=== PATIENT | female | born 1940 | race Caucasian/White ===

== ENCOUNTER 2018-11-23 13:43 | Inpatient (IN) ==
[2018-11-23 14:23] LABS: BASO# 0.01 X1000 (0.0-0.2); BASO% 0.2 % (0.0-0.8); EOS# 0.28 X1000 (0.0-0.7); HEMATOCRIT 36.3 % (37.0-47.0); HEMOGLOBIN 11.7 g/dL (12.0-16.0); IMM GRAN# 0.02 X1000 (0.0-0.04); IMM GRAN% 0.4 % (0.0-0.5); LYMPH# 1.32 X1000 (1.2-3.4); LYMPH% 23.4 % (20.5-51.1); MCH 27.6 PG (27-31); MCHC 32.2 g/dL (33-37); MCV 85.6 FL (81-99); MONO# 0.41 X1000 (0.11-0.59); MONO% 7.3 % (1.7-9.3); MPV 11.4 FL (7.4-10.4); NEUT% 63.7 % (42.2-75.2); PLT 192 X1000 (130-400); RBC 4.24 XMIL (4.2-5.4); WBC 5.64 X1000 (4.8-10.8)
[2018-11-23 14:58] LABS: ALB/GLOB RATIO 1.2; ALBUMIN 3.7 g/dL (3.5-5.0); CALCIUM 8.5 mg/dL (8.8-10.2); CREATININE 1.6 mg/dL (0.5-0.9); POTASSIUM 3.4 mmol/L (3.5-5.1); TOTAL BILIRUBIN 0.37 mg/dL (0.20-1.00); TOTAL PROTEIN 6.7 g/dL (6.3-8.3)
--- NOTE | 2018-11-23 16:13 | PROVIDER DOCUMENTATION ---
HPI-Abdominal Pain/GI Problem - General Chief Complaint: N/V/D Stated Complaint: WEAK/VOMITING Time Seen by Provider: 11/23/18 15:50 Source: patient Allergies/Adverse Reactions: Patient Allergies Allergy/AdvReac Type Severity Reaction Status Date / Time codeine Allergy HIVES Verified 11/18/18 14:21 hydrocodone Allergy ITCHING Verified 11/18/18 14:21 levofloxacin [From Levaquin] Allergy VOMITING Verified 11/18/18 14:21 Penicillins Allergy HIVES Verified 11/18/18 14:21 Home Medications: Home Medication List Medication Instructions Recorded Confirmed Last Taken Type ATORVAstatin [Lipitor] 40 mg PO HS 12/09/16 11/23/18 08/28/17 History Carvedilol 6.25 mg PO BID 12/09/16 11/23/18 08/28/17 History Isosorbide Mononitrate [Isosorbide 30 mg PO DAILY 12/09/16 11/23/18 08/28/17 History Mononitrate ER] Aspirin 81 mg PO DAILY 05/05/17 11/23/18 08/28/17 History Blood-Glucose Meter [Relion 1 each MC BID 08/28/17 11/23/18 08/28/17 History All-in-One] Furosemide [Lasix] 40 mg PO PRN PRN 08/28/17 11/23/18 Unknown History Ticagrelor [Brilinta] 90 mg PO BID 08/28/17 11/23/18 Unknown History Ascorbic Acid [Vitamin C] 250 mg PO DAILY 11/23/18 11/23/18 Unknown History Azithromycin 1 tab PO DAILY 11/23/18 11/23/18 Unknown History Cholecalciferol (Vit D3) [Vitamin 1 tab PO DAILY 11/23/18 11/23/18 Unknown History D3] Citalopram Hydrobromide [Celexa] 10 mg PO DAILY 11/23/18 11/23/18 Unknown History Cyanocobalamin (Vitamin B-12) 1,000 mcg IM DIRECTED 11/23/18 11/23/18 Unknown History [Cyanocobalamin Injection] Donepezil [Aricept] 10 mg PO QHS 11/23/18 11/23/18 Unknown History Guaifenesin [Mucinex] 600 mg PO Q12HR PRN 11/23/18 11/23/18 Unknown History Insulin Lispro [Humalog] 5 unit SQ DAILY PRN 11/23/18 11/23/18 Unknown History Insulin NPH Human Isophane 10 units SQ QHS 11/23/18 11/23/18 Unknown History [Novolin N] Insulin NPH Human Isophane 12 units SQ QAM 11/23/18 11/23/18 Unknown History [Novolin N] Levothyroxine [Synthroid] 75 microgm PO DAILY 11/23/18 11/23/18 Unknown History Potassium Chloride 10 meq PO DAILY PRN 11/23/18 11/23/18 Unknown History Temazepam 1 cap PO QHS 11/23/18 11/23/18 Unknown History - History of Present Illness-ABD Nature of Presenting Problems: 78y/o female with h/o DM, HLD, Hypot4 discharged from [facility] yesterday and for home rehab due to possible CVA with left sided hemiparesis. She was started on zpak for cough but developed nausea, vomiting and diarrhea yesterday. had numerous episodes of emesis and loose watery stools and reports feeling weak and unable to do anything for her self at home. Associated Symptoms: reports: diarrhea Dark Stools Present?: reports: none noticed # of Diarrhea Episodes: 6 # of Vomiting Episodes: 5 Emesis Description: reports: clear Review of Systems - Adult - REVIEW OF SYSTEMS - ADULT Constitutional: reports: no symptoms reported Eyes: reports: no symptoms reported Ears, Nose, Mouth & Throat: reports: no symptoms reported Cardiovascular: reports: no symptoms reported Respiratory: reports: cough Gastrointestinal: reports: see HPI Genitourinary: reports: no symptoms reported Musculoskeletal: reports: no symptoms reported Integumentary: reports: no symptoms reported Neurological: reports: see HPI Psychiatric: reports: no symptoms reported Endocrine: reports: no symptoms reported Allergic/Immunologic: reports: no symptoms reported Past History - Adult - PAST MEDICAL HISTORY-ADULT Review of Records: reports: Nursing Assessment Review, Medications Reviewed, Social history reviewed & non-contributory. Cardiovascular: reports: CAD, HTN, hyperlipidemia Respiratory: reports: denies history Gastrointestinal: reports: denies history Obstetrical/Gynecological: reports: denies history Genitourinary: reports: denies history Musculoskeletal: reports: denies history Neurological: reports: denies history Endocrine/Immune: reports: Diabetes, thyroid disorder Other Conditions: reports: denies history Additional History: insomnia - PRIOR SURGERIES/PROCEDURES Surgical/Procedure History: reports: hysterectomy, other (laparotomy) - IMMUNIZATION STATUS Childhood Immunizations: See Nurse Assessment Flu Vaccine: See Nurse Assessment - FAMILY HISTORY Family History: reviewed, not pertinent - SOCIAL HISTORY Smoking: denies, non-smoker Substance Use: none/never Alcohol Use Frequency: never Living Situation: alone Physical Exam-General - CONSTITUTIONAL General Appearance: lethargic - EYES Eyes: PERRL/EOMI, other - HEAD, EARS, NOSE, MOUTH & THROAT HENMT: normocephalic/atraumatic, other (dry oral mucosa) - NECK Neck: non-tender, full range of motion - RESPIRATORY Respiratory: chest non-tender - CARDIOVASCULAR Cardiovascular: regular rate, rhythm, no edema - GASTROINTESTINAL (ABDOMEN) Abdominal Exam: non tender, soft - MUSCULOSKELETAL Back Exam: normal inspection Extremity: non-tender - NEUROLOGIC Neurologic: motor weakness (left sided, noted) - PSYCHIATRIC Psych/Mental Status: oriented x 3 Progress - PLAN OF CARE/RESULTS Progress/Plan/Lab Results: Vital Signs - 8 hr 11/23/18 13:50 11/23/18 14:09 Temperature 98.1 F 98.1 F Pulse Rate 56 L 55 L Respiratory Rate 16 18 Blood Pressure 108/62 118/67 O2 Sat by Pulse Oximetry 99 99 Laboratory Results - last 24 hr 11/23/18 11/23/18 13:14 13:14 WBC 5.64 RBC 4.24 Hgb 11.7 L Hct 36.3 L MCV 85.6 MCH 27.6 MCHC 32.2 L RDW Std Deviation 13.0 Plt Count 192 MPV 11.4 H Immature Gran % (Auto) 0.4 Neut % (Auto) 63.7 Lymph % (Auto) 23.4 [place] % (Auto) 7.3 Eos % (Auto) 5.0 Baso % (Auto) 0.2 Immature Gran # (Auto) 0.02 Neut # (Auto) 3.60 Lymph # (Auto) 1.32 [place] # (Auto) 0.41 Eos # (Auto) 0.28 Baso # (Auto) 0.01 Sodium 143 Potassium 3.4 L Chloride 110 H Carbon Dioxide 21 L Anion Gap 12 BUN 19 Creatinine 1.6 H Estimated GFR/1.73 m2 31 BUN/Creatinine Ratio 12 Glucose 206 H Calculated Osmolality 293 Calcium 8.5 L Total Bilirubin 0.37 AST 18 ALT 18 Alkaline Phosphatase 82 Total Protein 6.7 Albumin 3.7 Globulin 3.0 Albumin/Globulin Ratio 1.2 Amylase 69 Lipase 29 Orders Category Date Time Status Saline Loc DIRECTED Care 11/23/18 14:05 Active NPO Diet 11/23/18 14:05 Active AMYLASE [CHEM] Stat Lab 11/23/18 13:14 Completed CBC WITH ELECTRONIC DIFF [HEME] Stat Lab 11/23/18 13:14 Completed COMPREHENSIVE METABOLIC PANEL [CHEM] Stat Lab 11/23/18 13:14 Completed LIPASE [CHEM] Stat Lab 11/23/18 13:14 Completed URINALYSIS W/POSS RFLX CULT [URINALYSIS] Stat Lab 11/23/18 14:05 Uncollected Result Diagrams: 11/23/18 13:14 11/23/18 13:14 - REASSESSMENT Reassessment #1 Time Reassessed: 06:30 Status: improving (nauseas has subsided, still generalised abdominal pain but mild. discussed ellevated lipase and will be admitting pt as she aslo now wants to have inpatient rehab. She reinterates that she cannot do much by her self at home.) - XRAY 1 XRAY Study: Chest ( EXAM: CHEST-1 VIEW HISTORY: cough TECHNIQUE: Chest single view COMPARISON: 11/18/2018 FINDINGS: The lungs are well expanded. The heart is not enlarged. The vessels are not distended. There are no infiltrates. No effusion identified. Granuloma on the left. IMPRESSION: No pneumonia Electronically signed by Gui Gonzalez 11/23/2018 4:47 PM) - CONSULTS/PCP/HOSPITALIST Notification #1 *Consult/PCP/Hospitalist*: [place]- hospitalist Time Discussed: 06:45 Consult Disposition: Admit (admission accepted) Departure - Departure Date of Disposition Decision: 11/23/18 Time of Disposition Decision: 19:08 DIAGNOSIS: Nausea & vomiting Qualifiers: Vomiting type: unspecified Vomiting Intractability: non-intractable Qualified Code(s): R11.2 - Nausea with vomiting, unspecified Diarrhea Qualifiers: Diarrhea type: unspecified type Qualified Code(s): R19.7 - Diarrhea, unspecified Hemiparesis Qualifiers: Hemiparesis etiology: unspecified Hemiparesis laterality: unspecified Qualified Code(s): G81.90 - Hemiplegia, unspecified affecting unspecified side Pancreatitis Qualifiers: Chronicity: acute Pancreatitis type: unspecified pancreatitis type Acute pancreatitis complication: unspecified Qualified Code(s): K85.90 - Acute pancreatitis without necrosis or infection, unspecified Disposition: ADMITTED INPATIENT 09 Certified Medical Emergency: Emergent Condition: Fair Referrals and Follow-Ups: Page Orta CRNP [Primary Care Provider] - - Critical Care Note This patient required my direct & personal management of CC.: No Attestation - Physician/ WANDA Attestation Patient care was provided by Advanced Practice Provider:: No The physician spent face to face time with patient:: Yes Advanced Practice Provider documentation review:: Supervising physician onsite and consulted in the evaluation and care of this patient. The physician did have a face to face encounter with the patient.
[2018-11-23] MEDS ORDERED: NS 500 ML IV ONE (16:21)
[2018-11-23] MEDS ORDERED: ZOFRAN IV ONE (16:23)
--- NOTE | 2018-11-23 16:50 | Diag Imaging Result Doc PS360 ---
EXAM: CHEST-1 VIEW HISTORY: cough TECHNIQUE: Chest single view COMPARISON: 11/18/2018 FINDINGS: The lungs are well expanded. The heart is not enlarged. The vessels are not distended. There are no infiltrates. No effusion identified. Granuloma on the left. IMPRESSION: No pneumonia Electronically signed by Gui Gonzalez 11/23/2018 4:47 PM
[2018-11-23 18:08] LABS: URINE SOURCE CLEAN CATCH
[2018-11-23 18:39] LABS: BILIRUBIN URINE NEGATIVE (NEGATIVE); BLOOD URINE TRACE (NEGATIVE); COLOR YELLOW; GLUCOSE URINE NEGATIVE (NEGATIVE); KETONE URINE NEGATIVE (NEGATIVE); LEUKOCYTES URINE SMALL (NEGATIVE); NITRITE URINE NEGATIVE (NEGATIVE); PROTEIN URINE 200 mg/dL (NEGATIVE); SP GRAVITY URINE 1.015; TURBIDITY URINE HAZY (CLEAR); UROBILINOGEN URINE NORMAL (NORMAL)
[2018-11-23 18:40] LABS: UR EPITHELIAL CELLS <10 /HPF (<10); URINE BACTERIA 2+ /HPF; URINE RBC TNTC /HPF (<10)
[2018-11-23] MEDS ORDERED: MUCINEX PO PRN (19:29)
[2018-11-23] MEDS ORDERED: KLOR-CON PO PRN (19:29)
[2018-11-23] MEDS ORDERED: CYANOCOBALAMIN IM SCH (19:30)
[2018-11-23] MEDS: ROCEPHIN 1 GM in NS 50 ML IV SCH (22:23)
[2018-11-23] MEDS ORDERED: TYLENOL PO PRN (23:03)
[2018-11-23] MEDS ORDERED: KLOR-CON PO ONE (23:03)
[2018-11-23] MEDS ORDERED: ZOFRAN IV PRN (23:03)
[2018-11-23] MEDS ORDERED: NS 1,000 ML IV SCH (23:03)
[2018-11-24] MEDS: BRILINTA PO SCH ×3 (00:54→22:28)
[2018-11-24] MEDS: ARICEPT PO SCH ×2 (00:55→22:28)
[2018-11-24] MEDS: LIPITOR PO SCH ×2 (00:55→22:28)
[2018-11-24] MEDS: COREG PO SCH ×3 (00:56→22:28)
[2018-11-24] MEDS: RESTORIL PO SCH ×2 (00:56→22:28)
[2018-11-24] MEDS: HUMALOG SUBQ SCH ×6 (01:18→22:33)
--- NOTE | 2018-11-24 03:27 | HISTORY AND PHYSICAL ---
PRIMARY CARE PHYSICIAN: Esthela Parada MD CHIEF COMPLAINT: Nausea, vomiting, diarrhea. HPI: Ms. Andrea is a 78-year-old female who was recently discharged from [facility]. From what I understand she had symptoms of a CVA. Apparently she had an MRI and other testing which did not show an acute CVA, however, she does continue to have residual left-sided weakness in both the upper and lower extremities. She was originally supposed to be discharged to rehab but the patient had refused in lieu of going home and receiving home health. Her [id number] is at the bedside, stated that she was too weak to be at home even with home health. She is having trouble ambulating. She also had a couple of bouts of nausea with vomiting this morning and has had mild diarrhea throughout the day with abdominal discomfort in the epigastric area. Nothing makes it better, nothing makes it worse. Her laboratory data was grossly normal or at baseline. She is known to have chronic kidney disease stage III. Her creatinine is mildly elevated over its baseline related to fluid volume depletion. She will be placed on the medical floor with director of social services consultation for inpatient rehab placement. 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 PREVIOUS SURGICAL HISTORY: Hysterectomy, small bowel resection after perforation, cholecystectomy. SOCIAL HISTORY: Recently left [facility]. Did not want to go to inpatient rehab, went home with home health. She is too weak to stay at home. Her [id number] lives close but she essentially lives alone. No alcohol, tobacco, or illicit drugs. FAMILY HISTORY: Positive for coronary artery disease and CVA. She has a living brother who recently had open heart surgery. I believe mother had liver disease. ALLERGIES: CODEINE, HYDROCODONE, LEVAQUIN AND PENICILLIN. HOME MEDICATIONS: 1. Azithromycin take as directed. 2. Lasix 40 mg p.o. p.r.n. 3. Lispro insulin 5 units subcutaneously daily. 4. Novolin N 10 units subcutaneously at bedtime, and 12 units subcutaneously every morning. 5. Ascorbic acid 250 mg daily. 6. Aspirin 81 mg daily. 7. Atorvastatin 40 mg p.o. at bedtime. 8. Carvedilol 6.25 mg p.o. b.i.d. 9. Vitamin D3, 1000 units p.o. daily. 10. Celexa 10 mg p.o. daily. 11. Vitamin B12, 1000 mcg as directed. 12. Aricept 10 mg p.o. at bedtime. 13. Guaifenesin 600 mg p.o. q.12. 14. Isosorbide 30 mg p.o. daily. 15. Levothyroxine 75 mcg p.o. daily. 16. Potassium chloride 10 mEq p.o. daily. 17. Temazepam 15 mg p.o. at bedtime. 18. Brilinta 90 mg p.o. b.i.d. REVIEW OF SYSTEMS: A 14-point review of systems conducted with the patient. Pertinent positives listed above in the HPI. All other systems reviewed and found to be negative. PHYSICAL EXAMINATION: VITAL SIGNS: Temperature 98.5, pulse 55, respirations 18, blood pressure 118/67, oxygen saturation 100% on room air. GENERAL: Pleasant 78-year-old female, alert and oriented x3, answers all questions appropriately. [id number] is at bedside, very supportive. HEENT: Head is atraumatic, normocephalic. Pupils equal, round, react to light. Extraocular eye movements intact. Sclera anicteric. Conjunctiva pink. Oral mucosa is somewhat dry. NECK: Supple. No JVD. No thyromegaly. Trachea is midline. No cervical lymphadenopathy. CARDIAC: S1, S2 appreciated. No murmurs, gallops, rubs. LUNGS: Clear to auscultation bilaterally. No rhonchi, wheezes, rales. Symmetric rise and fall respirations. ABDOMEN: Soft, nondistended. Tender in the epigastric area to palpation. Bowel sounds present all 4 quadrants, normoactive. No pulsatile mass or organomegaly. EXTREMITIES: No clubbing, cyanosis or edema, 2+ pedal pulses bilaterally. GENITOURINARY: No bladder distention. Patient voids, otherwise deferred. NEUROLOGICAL: Alert and oriented x3. Cranial nerves 2-12 appear to be grossly intact. MUSCULOSKELETAL: Strength 3/5 throughout upper and lower extremity, 1-2/5 strength left upper and lower extremity. DIAGNOSTIC DATA: Chest x-ray no acute process. LABORATORY DATA: WBC 5.64, hemoglobin 11.7, hematocrit 36.3, platelet count 192,000. Sodium 143, potassium 3.4, chloride 110, carbon dioxide 21, BUN 19, creatinine 1.6, glucose 206. Urine leuk esterase positive, too numerous to count WBCs, 2+ bacteria. ASSESSMENT AND PLAN: 1. Urinary tract infection. Will give Rocephin 1 gram IV daily. Urine cultures are pending. 2. Nausea, vomiting and diarrhea. This is from unknown etiology, however, it does not seem to be that significant at this time. The patient complains of only very mild epigastric pain. States that she has not had diarrhea since arrival, only had 2 episodes of nausea and vomiting this morning. Will give Zofran, continue to monitor, replace electrolytes, recheck tomorrow morning. Continue crystalloid treatment over night. 3. Diabetes mellitus type 2 with hyperglycemia. Sliding scale insulin with fingerstick blood sugar before meals and at bedtime. Will keep patient on diabetic clear liquids over night related to nausea, vomiting and diarrhea for GI rest. 4. Hyperlipidemia. Continue atorvastatin. 5. Chronic kidney disease stage III. Patient's creatinine is slightly elevated related to fluid depletion as noted above. Will give fluids over night, recheck laboratory data tomorrow morning. 6. Recent transient ischemic attack or cerebrovascular accident with treatment at [facility]. The patient states that it was ruled a mini stroke, however, she does have residual left-sided weakness. Will consult case management for inpatient rehab. Further recommendations per patient clinical course. Dictated by MARION Galvan for Jose Kasper MD I have performed a face to face diagnostic evaluation. Labs/Xrays- reviewed. Exam- Chest Clear, CV- regular, Abd- soft. A/P- UTI, N/V/D- Admit- IV ABX, IV fluids. antiemetics . Dr. Kasper cc: MD Everette Treviño CRNP Lloyd James, MD [facility]
[2018-11-24] MEDS: SYNTHROID PO SCH (06:50)
[2018-11-24 07:05] LABS: BASO# 0.01 X1000 (0.0-0.2); BASO% 0.2 % (0.0-0.8); EOS# 0.22 X1000 (0.0-0.7); EOS% 4.5 % (0.0-10.0); HEMATOCRIT 34.9 % (37.0-47.0); HEMOGLOBIN 11.1 g/dL (12.0-16.0); IMM GRAN# 0.02 X1000 (0.0-0.04); IMM GRAN% 0.4 % (0.0-0.5); LYMPH# 1.32 X1000 (1.2-3.4); LYMPH% 26.9 % (20.5-51.1); MCH 27.5 PG (27-31); MCHC 31.8 g/dL (33-37); MCV 86.4 FL (81-99); MONO# 0.43 X1000 (0.11-0.59); MONO% 8.8 % (1.7-9.3); MPV 11.3 FL (7.4-10.4); NEUT% 59.2 % (42.2-75.2); PLT 165 X1000 (130-400); RBC 4.04 XMIL (4.2-5.4)
[2018-11-24 07:34] LABS: CALCIUM 8.4 mg/dL (8.8-10.2); CREATININE 1.1 mg/dL (0.5-0.9); MAGNESIUM 1.6 mg/dL (1.5-2.7); POTASSIUM 3.2 mmol/L (3.5-5.1)
[2018-11-24] MEDS ORDERED: CALMOSEPTINE OINTMENT TOP PRN (09:50)
[2018-11-24] MEDS: CELEXA PO SCH (09:53)
[2018-11-24] MEDS: VITAMIN D PO SCH (09:53)
[2018-11-24] MEDS: ASPIRIN PO SCH (09:53)
[2018-11-24] MEDS: VITAMIN C PO SCH (09:53)
[2018-11-24] MEDS: IMDUR PO SCH (09:54)
[2018-11-24] MEDS ORDERED: KLOR-CON PO ONE (12:12)
--- NOTE | 2018-11-24 15:29 | PROGRESS NOTE ---
DATE: 11/24/2018 SUBJECTIVE: Patient has no major complaints. OBJECTIVE: Blood pressure 185/56, heart rate of 54, respiratory rate of 16, temperature 97.8 degrees, 100% on room air.Cardiovascular: Regular rate and rhythm. Pulmonary: Bilateral breath sounds clear to auscultation. GI: Soft, nontender, nondistended. Bowel sounds are positive. White count 4, hemoglobin and hematocrit 11 and 34, platelets 165,000. Sodium 146, potassium 3.2, creatinine 1.1, down from 1.6. TSH 4.75. PROBLEM LIST: 1. Nausea, vomiting, diarrhea, possible enteritis. We will continue supportive measures and follow. 2. Possible UTI, empirically on antibiotics. Follow up on urine culture and monitor closely. 3. Type 2 diabetes. We will continue sliding scale regular medications and monitor. Advance diet as tolerated. 4. Chronic renal failure has overall improved. DISPOSITION: Anticipate discharge hopefully in the next 24 hours but will see how she does. cc: Jose Carlos Aguiar MD
--- NOTE | 2018-11-24 15:43 | Diag Imaging Result Doc PS360 ---
EXAM: ABDOMEN FLAT/UPRIGHT 11/24/2018 HISTORY: n/v/d TECHNIQUE: Flat and upright abdomen two views COMMENT: There is curvature of the lumbar spine with convexity to the right. There is colonic gas and some small bowel gas without evidence of dilatation. There is less stool seen than on 05/05/2017. There is no evidence of organomegaly or mass. The gallbladder has apparently been removed since the previous study. IMPRESSION: Nonspecific abdomen. Electronically signed by Kamaljit Benitez 11/24/2018 3:41 PM
[2018-11-24] MEDS: ROCEPHIN 1 GM in NS 50 ML IV SCH (22:26)
[2018-11-25] MEDS: HUMALOG SUBQ SCH ×4 (06:16→21:48)
[2018-11-25] MEDS: SYNTHROID PO SCH (06:36)
[2018-11-25 07:28] LABS: BASO# 0.02 X1000 (0.0-0.2); BASO% 0.5 % (0.0-0.8); EOS% 4.7 % (0.0-10.0); HEMATOCRIT 35.9 % (37.0-47.0); HEMOGLOBIN 11.4 g/dL (12.0-16.0); LYMPH# 1.35 X1000 (1.2-3.4); LYMPH% 31.8 % (20.5-51.1); MCH 27.5 PG (27-31); MCHC 31.8 g/dL (33-37); MCV 86.7 FL (81-99); MONO# 0.33 X1000 (0.11-0.59); MONO% 7.8 % (1.7-9.3); MPV 11.5 FL (7.4-10.4); NEUT# 2.34 X1000 (1.4-6.5); NEUT% 55.2 % (42.2-75.2); PLT 165 X1000 (130-400); RBC 4.14 XMIL (4.2-5.4); RDW 13.1 % (11.5-14.5); WBC 4.24 X1000 (4.8-10.8)
[2018-11-25 07:52] LABS: CALCIUM 8.1 mg/dL (8.8-10.2); CREATININE 1.3 mg/dL (0.5-0.9); MAGNESIUM 1.5 mg/dL (1.5-2.7); POTASSIUM 3.5 mmol/L (3.5-5.1)
[2018-11-25] MEDS: VITAMIN D PO SCH (09:31)
[2018-11-25] MEDS: COREG PO SCH ×2 (09:32→21:55)
[2018-11-25] MEDS: VITAMIN C PO SCH (09:32)
[2018-11-25] MEDS: BRILINTA PO SCH ×2 (09:32→21:55)
[2018-11-25] MEDS: ASPIRIN PO SCH (09:32)
[2018-11-25] MEDS: CELEXA PO SCH (09:33)
[2018-11-25] MEDS: IMDUR PO SCH (09:33)
[2018-11-25] MEDS ORDERED: IMODIUM PO PRN (14:49)
--- NOTE | 2018-11-25 15:31 | PROGRESS NOTE ---
DATE: 11/25/2018 SUBJECTIVE: Patient has no major complaints. OBJECTIVE: Blood pressure is 142/53, heart rate 66, respiratory rate 20, temperature 98.8 degrees, 99% on room air.Cardiovascular: Regular rate and rhythm. Pulmonary: Bilateral breath sounds clear to auscultation. GI: Soft, nontender, nondistended. Bowel sounds are positive. LABORATORY DATA: White count 4, hemoglobin and hematocrit 11 and 35. Platelets 165,000. Creatinine 1.3. PROBLEM LIST: 1. Nausea, vomiting, diarrhea, enteritis. Her stool studies thus far are unremarkable, which I think this suggests that this is probably viral. Clostridium difficile testing, ova and parasite, everything is negative so we will continue supportive measures. 2. Possible urinary tract infection. Culture is negative. She is on empiric antibiotics. 3. Dehydration that appears to be improving. She had been on some gentle hydration. 4. Chronic renal failure had improved. DISPOSITION: We are looking at rehab when available in the next couple days or when bed is available. cc: Jose Carlos Aguiar MD
[2018-11-25] MEDS: ROCEPHIN 1 GM in NS 50 ML IV SCH (21:50)
[2018-11-25] MEDS: RESTORIL PO SCH (21:54)
[2018-11-25] MEDS: LIPITOR PO SCH (21:55)
[2018-11-25] MEDS: ARICEPT PO SCH (21:55)
[2018-11-26] MEDS: HUMALOG SUBQ SCH ×4 (06:18→20:44)
[2018-11-26] MEDS: SYNTHROID PO SCH (06:33)
[2018-11-26 07:15] LABS: BASO# 0.01 X1000 (0.0-0.2); BASO% 0.2 % (0.0-0.8); EOS# 0.22 X1000 (0.0-0.7); EOS% 4.4 % (0.0-10.0); HEMATOCRIT 35.7 % (37.0-47.0); HEMOGLOBIN 11.5 g/dL (12.0-16.0); IMM GRAN# 0.03 X1000 (0.0-0.04); IMM GRAN% 0.6 % (0.0-0.5); LYMPH# 1.51 X1000 (1.2-3.4); LYMPH% 30.2 % (20.5-51.1); MCH 27.5 PG (27-31); MCHC 32.2 g/dL (33-37); MCV 85.4 FL (81-99); MONO# 0.43 X1000 (0.11-0.59); MONO% 8.6 % (1.7-9.3); MPV 11.2 FL (7.4-10.4); PLT 161 X1000 (130-400); RBC 4.18 XMIL (4.2-5.4)
[2018-11-26 07:31] LABS: CALCIUM 8.6 mg/dL (8.8-10.2); CREATININE 1.1 mg/dL (0.5-0.9); POTASSIUM 3.1 mmol/L (3.5-5.1)
[2018-11-26] MEDS: NS 1,000 ML IV SCH (08:31)
--- NOTE | 2018-11-26 08:42 | PROGRESS NOTE ---
DATE: 11/26/2018 SUBJECTIVE: Patient denies having any acute complaints except for having continuous diarrhea. She denies having any nausea, vomiting, or abdominal pain. She also denies having any other complaints. OBJECTIVE: Vital Signs: Temperature 98.0 degrees, pulse 58 per minute, respiratory rate 18 per minute, blood pressure 188/53, pulse oximetry 99% on room air. General: Patient is alert and oriented x3. She does not appear to be in any acute distress, but looks very weak. Cardiovascular System: First and second heart sounds are audible without any murmurs or gallops. Respiratory System: Bilateral lung air entry is good without any rales or rhonchi. Gastrointestinal System: Abdomen is soft and nondistended. It is nontender on palpation and normal bowel sounds are present. DIAGNOSTIC DATA: CBC is nondiagnostic and chemistry shows potassium levels of 3.1. Creatinine level is found to be 1.1 and glucose 154. IMPRESSION: 1. Acute gastroenteritis. 2. Acute kidney injury that has improved. 3. Urinary tract infection. 4. Hypokalemia. 5. Hypertension. PLAN: We will continue with supportive care and I am going to start her on normal saline at 75 mL/h. We are going to continue with ceftriaxone intravenously and give her potassium supplements. Since her blood pressure has been persistently uncontrolled, I am going to start her on losartan 50 mg orally once daily. We will repeat labs in the morning and continue with physical therapy. She can possibly be transferred to rehab sometime next week. cc: Cl Jackson MD
[2018-11-26] MEDS: POTASSIUM CHLORIDE 20 MEQ/SWI 20 MEQ/100 ML IVPB IV SCH ×2 (09:02→14:18)
[2018-11-26] MEDS: IMDUR PO SCH (09:34)
[2018-11-26] MEDS: VITAMIN D PO SCH (09:34)
[2018-11-26] MEDS: VITAMIN C PO SCH (09:35)
[2018-11-26] MEDS: CELEXA PO SCH (09:35)
[2018-11-26] MEDS: COZAAR PO SCH (09:35)
[2018-11-26] MEDS: ASPIRIN PO SCH (09:35)
[2018-11-26] MEDS: COREG PO SCH ×2 (09:35→20:41)
[2018-11-26] MEDS: BRILINTA PO SCH ×2 (09:35→20:41)
[2018-11-26] MEDS: RESTORIL PO SCH (20:41)
[2018-11-26] MEDS: ARICEPT PO SCH (20:41)
[2018-11-26] MEDS: LIPITOR PO SCH (20:41)
[2018-11-26] MEDS: ROCEPHIN 1 GM in NS 50 ML IV SCH (20:41)
[2018-11-27] MEDS: NS 1,000 ML IV SCH ×3 (06:00→11:40)
[2018-11-27] MEDS: HUMALOG SUBQ SCH ×4 (06:48→22:37)
[2018-11-27] MEDS: SYNTHROID PO SCH (06:48)
[2018-11-27 07:39] LABS: BASO# 0.02 X1000 (0.0-0.2); BASO% 0.4 % (0.0-0.8); EOS# 0.22 X1000 (0.0-0.7); HEMATOCRIT 34.9 % (37.0-47.0); HEMOGLOBIN 11.1 g/dL (12.0-16.0); IMM GRAN# 0.03 X1000 (0.0-0.04); IMM GRAN% 0.5 % (0.0-0.5); LYMPH# 1.44 X1000 (1.2-3.4); MCH 27.8 PG (27-31); MCHC 31.8 g/dL (33-37); MCV 87.3 FL (81-99); MONO# 0.49 X1000 (0.11-0.59); MONO% 8.8 % (1.7-9.3); MPV 11.6 FL (7.4-10.4); NEUT# 3.34 X1000 (1.4-6.5); NEUT% 60.3 % (42.2-75.2); PLT 154 X1000 (130-400); WBC 5.54 X1000 (4.8-10.8)
[2018-11-27 08:12] LABS: CALCIUM 8.4 mg/dL (8.8-10.2); CREATININE 1.3 mg/dL (0.5-0.9); MAGNESIUM 1.6 mg/dL (1.5-2.7); POTASSIUM 3.9 mmol/L (3.5-5.1)
[2018-11-27] MEDS: COZAAR PO SCH (09:17)
[2018-11-27] MEDS: IMDUR PO SCH (09:17)
[2018-11-27] MEDS: VITAMIN D PO SCH (09:17)
[2018-11-27] MEDS: CELEXA PO SCH (09:17)
[2018-11-27] MEDS: COREG PO SCH ×2 (09:23→21:13)
[2018-11-27] MEDS: VITAMIN C PO SCH (09:23)
[2018-11-27] MEDS: ASPIRIN PO SCH (09:24)
[2018-11-27] MEDS: BRILINTA PO SCH ×2 (09:24→21:13)
--- NOTE | 2018-11-27 09:38 | PROGRESS NOTE ---
DATE: 11/27/2018 SUBJECTIVE: The patient has no new complaints. PHYSICAL: Vital Signs: Reviewed. Temperature 97, pulse 57, respiratory rate 20, and BP 172/68. General: The patient is pleasant. She is in no distress. HEENT: Normocephalic. Neck: Supple. CV: Regular rate. Chest: Clear. Abdomen: Soft and nondistended. Extremities: Moves all extremities. ASSESSMENT: 1. Acute gastroenteritis, appears resolved. 2. Diabetes, currently controlled on sliding scale insulin. 3. Acute kidney injury, appears resolved. 4. Urinary tract infection. 5. Hypokalemia, resolved. 6. Hypertension. PLAN: We will continue the patient in the hospital. Continue the present therapy. The patient will need rehab. We will adjust medications as needed. cc: Terence Mathew MD
[2018-11-27] MEDS: LIPITOR PO SCH (21:13)
[2018-11-27] MEDS: ROCEPHIN 1 GM in NS 50 ML IV SCH (21:13)
[2018-11-27] MEDS: RESTORIL PO SCH (21:13)
[2018-11-27] MEDS: ARICEPT PO SCH (21:14)
[2018-11-28] MEDS: NS 1,000 ML IV SCH ×3 (00:39→13:43)
[2018-11-28] MEDS: SYNTHROID PO SCH (06:17)
[2018-11-28] MEDS: HUMALOG SUBQ SCH ×4 (06:18→20:50)
[2018-11-28 07:38] LABS: HEMATOCRIT 35.7 % (37.0-47.0); HEMOGLOBIN 11.6 g/dL (12.0-16.0); MCH 28.3 PG (27-31); MCHC 32.5 g/dL (33-37); MCV 87.1 FL (81-99); MPV 11.2 FL (7.4-10.4); RBC 4.1 XMIL (4.2-5.4); RDW 13.2 % (11.5-14.5); WBC 5.61 X1000 (4.8-10.8)
[2018-11-28 08:01] LABS: ALB/GLOB RATIO 1.1; ALBUMIN 3.3 g/dL (3.5-5.0); CALCIUM 8.6 mg/dL (8.8-10.2); CREATININE 1.1 mg/dL (0.5-0.9); POTASSIUM 3.3 mmol/L (3.5-5.1); TOTAL BILIRUBIN 0.36 mg/dL (0.20-1.00); TOTAL PROTEIN 6.2 g/dL (6.3-8.3)
[2018-11-28] MEDS: BRILINTA PO SCH ×2 (09:12→20:51)
[2018-11-28] MEDS: CELEXA PO SCH (09:12)
[2018-11-28] MEDS: VITAMIN C PO SCH (09:12)
[2018-11-28] MEDS: COZAAR PO SCH (09:12)
[2018-11-28] MEDS: COREG PO SCH ×2 (09:13→20:51)
[2018-11-28] MEDS: ASPIRIN PO SCH (09:13)
[2018-11-28] MEDS: VITAMIN D PO SCH (09:13)
[2018-11-28] MEDS: IMDUR PO SCH (09:13)
--- NOTE | 2018-11-28 16:02 | PROGRESS NOTE ---
DATE: 11/28/2018 INTERVAL HISTORY: The patient with no further nausea, vomiting or diarrhea. Remains pretty significantly weak but no other complaints. REVIEW OF SYSTEMS: Twelve point review of systems negative except as per interval history. LABS: WBC 5.6, hemoglobin 11.6, hematocrit 35.7, platelets 157,000. Sodium 144, potassium 3.3, bicarb 21, BUN 12, creatinine 1.1, glucose 145 to 263. VITALS: T-max 98.5 degrees, pulse 56, respirations 18, blood pressure 212/67, O2 saturation 100% on room air. PHYSICAL EXAMINATION: General: No acute distress. Chronically ill-appearing. Vitals as above. HEENT: Normocephalic, atraumatic. Moist mucous membranes. No cervical adenopathy. Cardiovascular: Regular rate and rhythm. No murmurs noted. Pulmonary: Clear to auscultation bilaterally. No wheezing, rales or rhonchi. Abdomen: Soft, nontender, nondistended. Bowel sounds positive. Extremities: Peripheral pulses intact. No clubbing or cyanosis. Neurologic: Cranial nerves grossly intact globally weak but no focal deficits. Psychiatric: Normal mood and affect. Awake, alert, oriented x3. Skin: No new appearing rashes or lesions noted. ASSESSMENT AND PLAN: 1. Acute gastroenteritis. No further nausea, vomiting or diarrhea. Essentially resolved at this point. 2. Acute kidney injury now resolved, creatinine on admission 1.6 down to 1.1 today which is likely baseline. 3. Possible urinary tract infection. Patient remains on Rocephin. Last dose tomorrow. 4. Hypertension markedly elevated blood pressure on home Coreg. Given low normal to slightly bradycardic heart rates, will not increase that. Will add Norvasc and monitor. 5. Hypokalemia low again today. We will further replete and monitor, continue her low-dose daily potassium as well. 6. Diabetes control not ideal. We will add low-dose Lantus and monitor. 7. Hypothyroidism. Continue home Synthroid. 8. Dementia appears to be quite mild. All response appropriate. 9. Disposition. Likely to rehab tomorrow.
[2018-11-28] MEDS: NORVASC PO SCH (16:23)
[2018-11-28] MEDS: POTASSIUM CHLORIDE 20 MEQ/SWI 20 MEQ/100 ML IVPB IV SCH ×2 (16:24→20:49)
[2018-11-28] MEDS: ROCEPHIN 1 GM in NS 50 ML IV SCH (20:49)
[2018-11-28] MEDS: RESTORIL PO SCH (20:51)
[2018-11-28] MEDS: ARICEPT PO SCH (20:51)
[2018-11-28] MEDS: LIPITOR PO SCH (20:51)
[2018-11-29] MEDS: NS 1,000 ML IV SCH (02:29)
[2018-11-29] MEDS: SYNTHROID PO SCH (06:35)
[2018-11-29] MEDS: HUMALOG SUBQ SCH ×2 (07:46→11:21)
[2018-11-29 07:54] VITALS: BP 166/62
[2018-11-29] MEDS: VITAMIN C PO SCH (08:59)
[2018-11-29] MEDS: COZAAR PO SCH (08:59)
[2018-11-29] MEDS: IMDUR PO SCH (08:59)
[2018-11-29] MEDS: VITAMIN D PO SCH (08:59)
[2018-11-29] MEDS ORDERED: LANTUS INSULIN SUBQ SCH (09:00)
[2018-11-29] MEDS: BRILINTA PO SCH (09:00)
[2018-11-29] MEDS: NORVASC PO SCH (09:00)
[2018-11-29] MEDS: CELEXA PO SCH (09:00)
[2018-11-29] MEDS: COREG PO SCH (09:00)
[2018-11-29] MEDS: ASPIRIN PO SCH (09:00)
--- NOTE | 2018-11-29 13:11 | DISCHARGE SUMMARY ---
ADMISSION DATE: 11/26/2018 DISCHARGE DATE: 11/29/2018 PRIMARY CARE PHYSICIAN: MARION Schroeder. ADMISSION DIAGNOSES: 1. Urinary tract infection. 2. Nausea, vomiting, diarrhea. 3. Diabetes type 2 with hyperglycemia. 4. Hyperlipidemia. 5. Chronic kidney disease stage 3. 6. Recent transient ischemic attack or cerebrovascular accident with treatment at [facility]. DISCHARGE DIAGNOSES: 1. Acute gastroenteritis, resolved. 2. Acute kidney injury, resolved. 3. Possible urinary tract infection with urine culture showing mixed jono. 4. Hypertension. 5. Diabetes type 2, uncontrolled. 6. Hypothyroidism. 7. Dementia, mild. SUMMARY OF FINDINGS: This is a 78-year-old female who had recently been discharged from [facility] for CVA type symptoms, had apparently had an MRI which did not show an acute CVA, but had some residual left-sided weakness in both upper and lower extremities. Had been supposed to go to discharge to rehab, but patient refused in lieu of going home and receiving home health. She according to her [id number], had become more weak at home despite having home health, trouble ambulating. Was having bouts of nausea and vomiting and some mild diarrhea with abdominal discomfort in the epigastric area. She was known to have chronic kidney disease, but her creatinine was mildly elevated over its baseline due to fluid volume depletion, so she was admitted, placed on antibiotics. We did a urine culture that showed mixed jono, so she will not need any further antibiotics. She was found to have an acute gastroenteritis, but that has resolved and is tolerating a GI soft diet. She was followed by physical therapy and occupational therapy while here in the hospital. Her kidney function has come down from 1.6 on arrival down to 1.1. We did test her for lactoferrin that was positive. We did a shiga toxin of stool that was negative so it is now felt that she can safely be discharged to rehab today. DISCHARGE MEDICATIONS: 1. Norvasc 10 mg p.o. daily. 2. Vitamin C 250 mg p.o. daily. 3. Aspirin 81 mg p.o. daily. 4. Atorvastatin 40 mg p.o. at bedtime. 5. Carvedilol 6.25 mg p.o. b.i.d. 6. Vitamin D3 1000 units p.o. daily. 7. Celexa 10 mg p.o. daily. 8. Donepezil 10 mg p.o. at bedtime. 9. Mucinex 600 mg p.o. q.12 hours p.r.n. 10. Isosorbide 30 mg p.o. daily. 11. Synthroid 75 mcg p.o. daily. 12. Losartan 50 mg p.o. daily. 13. Potassium 10 mEq p.o. daily p.r.n. 14. Temazepam 15 mg p.o. at bedtime. 15. Brilinta 90 mg p.o. b.i.d. 16. Humalog 5 units subcutaneous t.i.d. p.r.n. for glucose over 300. 17. Novolin N 10 units subcutaneous at bedtime and 12 units subcutaneous q.a.m. FOLLOWUP: She will follow up with her primary care physician once she has completed her rehab stay. All discharge instructions have been reviewed with the patient and she verbalizes understanding. TIME SPENT: This is a 35 minute discharge. Dictated by MARION Morales for Sky Lane MD cc: MARION Morales
== END 2018-11-29 16:25 | DRG 392 ==
LOC: ED 13:43 → 3N 22:31 → INTOOBSV 22:31 → SUATTDRO 22:31
PROVIDERS: ATTEND Internal Medicine